=== PATIENT | male | born 1960 | race Caucasian/White ===

== ENCOUNTER 2016-08-28 15:20 | Emergency (ER) | payer OTHER ==
[~2016-08-28] VITALS: Ht 182.9 cm; Wt 73.6 kg
[~2016-08-28 15:20] MED LIST: ADVIN25/60 INH; ALBUAER19 INH; ALBUAER2 INH; IPRASOL4 INH; MELO15TA3 PO
[2016-08-28 15:26] VITALS: TEMP 36.5; Ht 182.9 cm; Wt 73.6 kg
[2016-08-28] MEDS ORDERED: ALBUTEROL 0.083% NEBU SOLN 3 ML VIAL INH STA (15:50)
[2016-08-28] MEDS ORDERED: METHYLPREDNISOLONE 125 MG VIAL IV STA (15:50)
[2016-08-28] MEDS ORDERED: SODIUM CHLORIDE 0.9% 500ML 500 ML IV STA (15:50)
[2016-08-28 15:53] VITALS: O2SAT 95
[2016-08-28] MEDS ORDERED: NAPR1TAB9 PO (15:56)
[2016-08-28] MEDS ORDERED: TRAM-10 PO (15:56)
[2016-08-28 16:09] LABS: BASO % 0.6 %; BASO ABS # 0.03 K/uL (0-0.2); COMPLETE YES; EOS % 2.7 %; HEMATOCRIT 41.9 % (42-52); IG% 0.2 %; LYMPH % 39.5 %; LYMPH ABS # 2.06 K/uL (1.2-3.4); MEAN CELL VOLUME 88.4 fL (80-100); MEAN CORPUSCULAR HEMOGLOBIN 32.5 pg (25-34); MEAN CORPUSCULAR HGB CONC 36.8 g/dl (32-36); MEAN PLATELET VOLUME 9.6 fL (7.4-10.4); MONO % 11.9 %; NEUT % 45.1 %; PLATELET COUNT 258 K/uL (130-400); RED BLOOD COUNT 4.74 M/uL (4.7-6.1); WHITE BLOOD COUNT 5.21 K/uL (4.8-10.8)
[2016-08-28 16:24] LABS: BLOOD UREA NITROGEN 18 mg/dl (7-18); CALCIUM 8.9 mg/dl (8.5-10.1); CARBON DIOXIDE 23 mmol/L (21-32); CHLORIDE 105 mmol/L (98-107); CREATININE 0.79 mg/dl (0.60-1.40); GLUCOSE 90 mg/dl (70-99); POTASSIUM 3.7 mmol/L (3.5-5.1); SODIUM 140 mmol/L (136-145)
[2016-08-28 16:29] LABS: CKMB/CK RATIO 1.5 (0-3.0)
--- NOTE | 2016-08-28 16:30 | DIAGNOSTIC IMAGING REPORT ---
CHEST ONE VIEW PORTABLE CLINICAL HISTORY: Chest pain. Cough. Shortness of breath. COMPARISON STUDY: Chest radiograph March 29, 2015. FINDINGS: Lung volumes are normal. No pneumothorax or pleural effusion is present. Cardiac size is normal. Mediastinal contours are normal. There is no evidence of pulmonary edema. Mild lower lung interstitial thickening is noted. IMPRESSION: 1. No definite acute cardiopulmonary findings. 2. Mild lower lung interstitial thickening which likely reflects atelectasis or normal vessels. Electronically signed by: Rodger Peralta M.D. 08/28/2016 4:28 PM Dictated Date/Time: 08/28/2016 4:27 PM
[2016-08-28] MEDS ORDERED: LEVOFLOXACIN 250 MG TAB PO ONE (18:30)
[2016-08-28] MEDS ORDERED: PRED50TA PO (18:31)
[2016-08-28] MEDS ORDERED: ALBU1.257 NEB (18:31)
[2016-08-28] MEDS ORDERED: LEVO-366 PO (18:31)
[2016-08-28 19:03] VITALS: BP 153/93; PULSE 88; O2SAT 95
--- NOTE | 2016-08-28 19:57 | EMERGENCY ROOM VISIT NOTE ---
History Report prepared by [place]: Elaina Wallace Under the Supervision of: Dr. Frankie Owusu D.O. First contact with patient: 15:35 Chief Complaint: CHEST PAIN Stated Complaint: CHEST DICOMFORT, COUGH, SOB Nursing Triage Summary: pt. arrived als, states he was at clinic today and was sent here, pt. has had cold and productive cough for past week, runny nose, chest pain substernal, 5/10 History of Present Illness The patient is a 55 year old male who presents to the Emergency Room with complaints of intermittent chest pain that has been ongoing for awhile, but states has worsened since yesterday. He currently rates his discomfort as a 4/ 10 in severity and describes it as a dull, achy pain. The patient notes a history of COPD and denies normally getting the discomfort with his COPD exacerbations. He additionally notes a cough and shortness of breath today. The patient states that he has had the pain five times today. He notes increased stress at home. The patient states that he intermittently experiences numbness in his extremities due sciatica. He states that one week ago he developed a cold and sore throat, but notes his symptoms subsided. The patient notes that his symptoms have come back and notes that his is sick at home. He denies any previous [place] and states that he is a smoker. Pt denies headache, change in vision, fevers, nausea, vomiting, diarrhea, pain with urination, and melena. Source of History: patient Onset: yesterday Position: chest Symptom Intensity: 4/10 Quality: ache, dull Timing: intermittent, worsening Associated Symptoms: + SOB, + cough, + sorethroat Review of Systems See HPI for pertinent positives & negatives. A total of 10 systems reviewed and were otherwise negative. Past Medical & Surgical Medical Problems: (1) Back pain, chronic (2) COPD (chronic obstructive pulmonary disease) (3) Diverticulitis (4) Hyperlipidemia (5) Kidney stones (6) Liver cyst (7) Olecranon bursitis of left elbow (8) Osteoarthritis (9) RA (rheumatoid arthritis) Surgical Problems: (1) S/P tonsillectomy Family History Cancer Diabetes mellitus Kidney disease Kidney stones Social History Smoking Status: Current Every Day Smoker Alcohol Use: occasionally Marital Status: Housing Status: lives with family Occupation Status: employed Current/Historical Medications Scheduled Albuterol Sulfate (Albuterol Sulfate), 1 VIAL NEB Q4 Fluticasone Prop/Salmeterol (Advair Diskus 250/50 60 Dose), 1 PUFF INH DAILY Ipratropium-Albuterol (Duoneb), 1 TREATMENT INH Q4H Levofloxacin (Levaquin), 500 MG PO DAILY Meloxicam (Mobic), 15 MG PO DAILY Prednisone (Prednisone), 50 MG PO DAILY Scheduled PRN Albuterol (Ventolin), 2 PUFFS INH QID PRN for SOB/Wheezing Naproxen (Aleve), 220 MG PO Q12 PRN for Pain Tramadol (Ultram), 100 MG PO DAILY PRN for Pain Allergies Coded Allergies: No Known Allergies (Unverified , 12/13/14) Physical Exam Vital Signs Date Time Temp Pulse Resp B/P Pulse Ox O2 Delivery O2 Flow Rate FiO2 08/28/16 19:03 88 15 153/93 95 08/28/16 17:54 71 21 149/80 94 Room Air 08/28/16 16:44 68 19 140/91 96 Room Air 08/28/16 15:53 95 Room Air 08/28/16 15:34 79 08/28/16 15:26 36.5 76 15 140/81 95 Room Air 08/28/16 15:26 Room Air Physical Exam GENERAL: Sitting up in bed, chronically ill appearing, disheveled, nontoxic. EYE EXAM: normal conjunctiva. OROPHARYNX: no exudate, no erythema, lips, buccal mucosa, and tongue normal and mucous membranes are moist NECK: supple, no nuchal rigidity, no adenopathy, non-tender LUNGS: Coarse sounds in the bilateral bases. Normal chest wall mechanics. Acute nonproductive cough. HEART: no murmurs, S1 normal and S2 normal ABDOMEN: abdomen soft, non-tender, normo-active bowel sounds, no masses, no rebound or guarding. BACK: Back is symmetrical on inspection and there is no deformity, no midline tenderness, no CVA tenderness. SKIN: no rashes and no bruising UPPER EXTREMITIES: upper extremities are grossly normal. Radial pulses are equal bilaterally. LOWER EXTREMITIES: No pitting edema. NEURO EXAM: Normal sensorium, cranial nerves II-XII grossly intact, normal speech, no gross weakness of arms, no gross weakness of legs. Medical Decision & Procedures ER Provider Diagnostic Interpretation: Xray results per the radiologist and my interpretation. Other results have been interpreted by the radiologist and reviewed by me. CHEST ONE VIEW PORTABLE CLINICAL HISTORY: Chest pain. Cough. Shortness of breath. COMPARISON STUDY: Chest radiograph March 29, 2015. FINDINGS: Lung volumes are normal. No pneumothorax or pleural effusion is present. Cardiac size is normal. Mediastinal contours are normal. There is no evidence of pulmonary edema. Mild lower lung interstitial thickening is noted. IMPRESSION: 1. No definite acute cardiopulmonary findings. 2. Mild lower lung interstitial thickening which likely reflects atelectasis or normal vessels. Electronically signed by: Rodger Peralta M.D. 08/28/2016 4:28 PM Dictated Date/Time: 08/28/2016 4:27 PM Laboratory Results 08/28/16 15:50 Red Blood Count 4.74, Mean Corpuscular Volume 88.4, Mean Corpuscular Hemoglobin 32.5, Mean Corpuscular Hemoglobin Concent 36.8, Mean Platelet Volume 9.6, Neutrophils (%) (Auto) 45.1, Lymphocytes (%) (Auto) 39.5, Monocytes (%) (Auto) 11.9, Eosinophils (%) (Auto) 2.7, Basophils (%) (Auto) 0.6, Neutrophils # (Auto ) 2.35, Lymphocytes # (Auto) 2.06, Monocytes # (Auto) 0.62, Eosinophils # (Auto ) 0.14, Basophils # (Auto) 0.03 08/28/16 15:50 Test 08/28/16 15:50 08/28/16 16:00 08/28/16 17:35 White Blood Count 5.21 K/uL (4.8-10.8) Red Blood Count 4.74 M/uL (4.7-6.1) Hemoglobin 15.4 g/dL (14.0-18.0) Hematocrit 41.9 % (42-52) Mean Corpuscular Volume 88.4 fL (80-100) Mean Corpuscular Hemoglobin 32.5 pg (25-34) Mean Corpuscular Hemoglobin Concent 36.8 g/dl (32-36) Platelet Count 258 K/uL (130-400) Mean Platelet Volume 9.6 fL (7.4-10.4) Neutrophils (%) (Auto) 45.1 % Lymphocytes (%) (Auto) 39.5 % Monocytes (%) (Auto) 11.9 % Eosinophils (%) (Auto) 2.7 % Basophils (%) (Auto) 0.6 % Neutrophils # (Auto) 2.35 K/uL (1.4-6.5) Lymphocytes # (Auto) 2.06 K/uL (1.2-3.4) Monocytes # (Auto) 0.62 K/uL (0.11-0.59) Eosinophils # (Auto) 0.14 K/uL (0-0.5) Basophils # (Auto) 0.03 K/uL (0-0.2) RDW Standard Deviation 40.8 fL (36.4-46.3) RDW Coefficient of Variation 12.7 % (11.5-14.5) Immature Granulocyte % (Auto) 0.2 % Immature Granulocyte # (Auto) 0.01 K/uL (0.00-0.02) D-Dimer 290 ug/L FEU (0-500) Anion Gap 12.0 mmol/L (3-11) Est Creatinine Clear Calc Drug Dose 107.4 ml/min Estimated GFR () 115.5 Estimated GFR (Non- 99.7 BUN/Creatinine Ratio 23.0 (10-20) Calcium Level 8.9 mg/dl (8.5-10.1) Total Creatine Kinase 96 U/L (39-308) Creatine Kinase MB 1.4 ng/ml (0.5-3.6) Creatine Kinase MB Ratio 1.5 (0-3.0) Influenza Type A Antigen Neg for Influ A (NEG) Influenza Type B Antigen Neg for Influ B (NEG) Troponin I < 0.015 ng/ml (0-0.045) Laboratory results per my review. Medications Administered Medications (Trade) Dose Ordered Sig/Tj Route Start Time Stop Time Status Last Admin Dose Admin Sodium Chloride (Nss 500ml) 500 ml @ 999 mls/hr Q31M STAT IV 08/28/16 15:50 08/28/16 16:20 DC 08/28/16 15:59 999 MLS/HR Albuterol Sulfate (Ventolin 0.083% 2.5MG/3ML Neb) 2.5 mg NOW STAT INH 08/28/16 15:50 08/28/16 15:52 DC 08/28/16 15:58 2.5 MG Methylprednisolone Sodium Succinate (Solu-Medrol IV) 125 mg NOW STAT IV 08/28/16 15:50 08/28/16 15:52 DC 08/28/16 15:50 125 MG Levofloxacin (Levaquin Tab) 500 mg NOW ONCE PO 08/28/16 18:30 08/28/16 18:31 DC 08/28/16 19:02 500 MG ECG Indication: chest pain Rate (beats per minute): 69 Rhythm: sinus rhythm Findings: no ectopy, other (normal axis) ED Course ED COURSE: Vital signs were reviewed and showed normal vitals. The patients medical record was reviewed The above diagnostic studies were performed and reviewed. ED treatments and interventions as stated above. 1542: The patient was evaluated in room A9. A complete history and physical examination was performed. 1550: Ordered Solu-Medrol IV 125 mg IV, Albuterol Sulfate 2.5 mg INH, Sodium Chloride 500 ml @ 999 mls/hr IV. 1740: I reevaluated the patient and he had complete resolution of his symptoms. 1829: Ordered Levofloxacin 500 mg PO. 1835: Upon reevaluation, the patient is resting comfortably.I discussed my findings with the patient and he understands and agrees with the treatment plan. Based on the patients age, coexisting illnesses, exam and lab findings the decision to treat as an outpatient was made. The patient remained stable while under my care. The patient appeared well at the time of discharge. Medical Decision Differential diagnoses includes but is not limited to acute coronary syndrome, myocardial infarction, pericarditis, pulmonary embolus, aortic dissection, pneumonia, pneumothorax, musculoskeletal, shingles, esophageal. Patient is a 55-year-old male who presents the ER for sore throat with a cough, runny nose and shortness of breath. He describes midsternal chest tightness which has been present for the past 3 days. He does have a past medical history of hypertension and hyperlipidemia. He also has a history of COPD. Lungs were coarse bilaterally. He was given albuterol neb treatment with complete resolution of his symptoms along with steroids and antibiotics. Chest x-ray bleed supports a scant right lower lobe pneumonia. EKG and troponins were negative 2. Patient was updated bedside. I do feel strongly that this is likely respiratory in origin especially with his complaints. I considered PE but did not pursue this any further as he has a clear upper respiratory infection. He is discharged with Levaquin, steroids and albuterol nebs. Discussed with Pt concerning signs and symptoms to watch out for. Pt was instructed to follow up with their PCP and discussed with the patient their option to return to the ED at anytime for persistent or worsening symptoms. The appropriate anticipatory guidance and out-patient management, including indications for return to the emergency department, were explained at length to the patient and understood. Impression Primary Impression: COPD with acute exacerbation Additional Impression: Bronchitis Scribe Attestation The scribe's documentation has been prepared under my direction and personally reviewed by me in its entirety. I confirm that the note above accurately reflects all work, treatment, procedures, and medical decision making performed by me. Departure Information Dispostion Home / Self-Care Prescriptions Albuterol Sulfate (ALBUTEROL SULFATE) 1.25 Mg/3 Ml Neb 1 VIAL NEB Q4 for 5 Days, #75 ML Prov: Frankie Owusu DO 08/28/16 Levofloxacin (Levaquin) 500 Mg Tab 500 MG PO DAILY for 9 Days, TAB Prov: Frankie Owusu DO 08/28/16 Prednisone (PREDNISONE) 50 Mg Tab 50 MG PO DAILY for 4 Days, TAB Prov: Frankie Owusu, 08/28/16 Referrals Adrienne Jc DO (PCP) Forms HOME CARE DOCUMENTATION FORM, IMPORTANT VISIT INFORMATION Patient Instructions A Signature Page, COPD - [facility], [facility] Additional Instructions Please follow up with your primary care doctor with in the next 24 hours. Any worsening of your symptoms, please return to the ED immediately. This includes worsening chest pain, shortness of breath, passing out, or any other concerning signs or symptoms from your standpoint. He did appear to have a bronchitis. Please take your steroids and antibiotics as prescribed.
== END 2016-08-28 19:13 | disposition home or self-care (01) ==
LOC: EDBD 15:20 → C.EDA 15:21
DX: J44.1 Chronic obstructive pulmonary disease with (acute) exacerbation (principal); J40 Bronchitis, not specified as acute or chronic; R07.9 Chest pain, unspecified; R05 Cough; R06.02 Shortness of breath; J02.9 Acute pharyngitis, unspecified; I10 Essential (primary) hypertension; E78.5 Hyperlipidemia, unspecified; R20.0 Anesthesia of skin; M06.9 Rheumatoid arthritis, unspecified; Z79.899 Other long term (current) drug therapy; F17.200 Nicotine dependence, unspecified, uncomplicated

== ENCOUNTER → 2017-02-19 | Outpatient (CLI) | payer OTHER ==
[~2017-02-19] MED LIST changes: -ALBUAER19 INH; +NAPR1TAB9 PO; +TRAM-10 PO
[2017-02-19 13:36] LABS: BASO % 0.3 %; BASO ABS # 0.02 K/uL (0-0.2); COMPLETE YES; EOS % 3.9 %; HEMATOCRIT 45.5 % (42-52); IG% 0.3 %; LYMPH % 26.6 %; LYMPH ABS # 1.71 K/uL (1.2-3.4); MEAN CELL VOLUME 91.5 fL (80-100); MEAN CORPUSCULAR HEMOGLOBIN 32.4 pg (25-34); MEAN CORPUSCULAR HGB CONC 35.4 g/dl (32-36); MEAN PLATELET VOLUME 10.2 fL (7.4-10.4); MONO % 9.6 %; NEUT % 59.3 %; PLATELET COUNT 279 K/uL (130-400); RED BLOOD COUNT 4.97 M/uL (4.7-6.1); WHITE BLOOD COUNT 6.43 K/uL (4.8-10.8)
[2017-02-19 14:01] LABS: ALT/SGPT 23 U/L (12-78); AST/SGOT 15 U/L (15-37); BLOOD UREA NITROGEN 14 mg/dl (7-18); BUN/CREATININE RATIO 18.7 (10-20); CALCIUM 8.7 mg/dl (8.5-10.1); CARBON DIOXIDE 26 mmol/L (21-32); CHLORIDE 107 mmol/L (98-107); CHOLESTEROL 181 mg/dl (0-200); CREATININE 0.75 mg/dl (0.60-1.40); GLUCOSE 85 mg/dl (70-99); POTASSIUM 4.1 mmol/L (3.5-5.1); SODIUM 137 mmol/L (136-145); TRIGLYCERIDES 90 mg/dl (0-150); VERY LOW DENSITY LIPOPROT CALC 18 mg/dl
[2017-02-19 14:04] LABS: ALB/GLOB RATIO 0.9 (0.9-2); ALKALINE PHOSPHATASE 96 U/L (45-117); CHOLESTEROL/HDL RATIO 4.5; HDL CHOLESTEROL 40 mg/dl; LDL CHOLESTEROL CALCULATED 123 mg/dl
== END | disposition home or self-care (01) ==
LOC: C.LABPBG 09:18
PROVIDERS: ATTEND Family Medicine
DX: Z00.00 Encounter for general adult medical examination without abnormal findings (principal); N40.1 Benign prostatic hyperplasia with lower urinary tract symptoms; Z12.5 Encounter for screening for malignant neoplasm of prostate; M06.9 Rheumatoid arthritis, unspecified

== ENCOUNTER 2017-08-26 16:51 | Emergency (ER) | payer OTHER ==
[~2017-08-26] VITALS: Ht 182.9 cm; Wt 72.8 kg
[2017-08-26 17:25] VITALS: TEMP 36.7; Ht 182.9 cm; Wt 72.8 kg
[2017-08-26] MEDS ORDERED: METHYLPREDNISOLONE 125 MG VIAL IV STA (19:26)
[2017-08-26] MEDS ORDERED: ONDANSETRON INJ 2 MG/ML 2 ML VIAL IV STA (19:26)
[2017-08-26] MEDS ORDERED: LIDODERM (LIDOCAINE) PATCH 5% TD STA (19:26)
[2017-08-26] MEDS ORDERED: HYDROmorphone INJ 1 MG/ML SYR IV STA (19:26)
[2017-08-26] MEDS ORDERED: KETOROLAC TROMETHAMINE 30 MG/ML VIAL IV STA (19:26)
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
[2017-08-26] MEDS ORDERED: ALBUT/IPRATROP 3MG/0.5MG NEB 3 ML VIAL INH STA (19:31)
[2017-08-26 19:51] VITALS: O2SAT 96
[2017-08-26 20:09] LABS: BASO % 0.3 %; BASO ABS # 0.02 K/uL (0-0.2); EOS % 2.2 %; EOS ABS # 0.13 K/uL (0-0.5); HEMATOCRIT 38.7 % (42-52); HEMOGLOBIN 13.9 g/dL (14.0-18.0); IG# 0.01 K/uL (0.00-0.02); LYMPH % 37.1 %; LYMPH ABS # 2.16 K/uL (1.2-3.4); MEAN CELL VOLUME 88.2 fL (80-100); MEAN CORPUSCULAR HEMOGLOBIN 31.7 pg (25-34); MEAN CORPUSCULAR HGB CONC 35.9 g/dl (32-36); MEAN PLATELET VOLUME 9.5 fL (7.4-10.4); MONO % 7.7 %; MONO ABS # 0.45 K/uL (0.11-0.59); NEUT % 52.5 %; NEUT ABS # 3.05 K/uL (1.4-6.5); PLATELET COUNT 220 K/uL (130-400); RED CELL DISTRIBUTION WIDTH CV 13.3 % (11.5-14.5); RED CELL DISTRIBUTION WIDTH SD 42.9 fL (36.4-46.3); WHITE BLOOD COUNT 5.82 K/uL (4.8-10.8)
[2017-08-26 20:10] LABS: ISTAT CREATININE 0.6 mg/dl (0.6-1.3); ISTAT IONIZED CALCIUM 1.14 mmol/l (1.12-1.32); ISTAT POTASSIUM 3.5 mEq/L (3.3-5.0)
[2017-08-26] MEDS ORDERED: HYDR12.55 PO (20:23)
[2017-08-26] MEDS ORDERED: GABA1CAP4 PO (20:23)
[2017-08-26 20:29] LABS: ALBUMIN 3.4 gm/dl (3.4-5.0); ALT/SGPT 22 U/L (12-78); AST/SGOT 12 U/L (15-37); BLOOD UREA NITROGEN 11 mg/dl (7-18); CALCIUM 8.8 mg/dl (8.5-10.1); CARBON DIOXIDE 26 mmol/L (21-32); CREATININE 0.69 mg/dl (0.60-1.40); GLUCOSE 82 mg/dl (70-99); POTASSIUM 3.5 mmol/L (3.5-5.1); SODIUM 136 mmol/L (136-145)
[2017-08-26 20:32] LABS: ALKALINE PHOSPHATASE 96 U/L (45-117); TOTAL PROTEIN 7.7 gm/dl (6.4-8.2)
[2017-08-26] MEDS ORDERED: CELE1CAP30 PO (20:32)
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
[2017-08-26] MEDS ORDERED: OPTIRAY 320 IV PRN (21:15)
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
[2017-08-26] MEDS ORDERED: PRED20TA2 PO (22:31)
[2017-08-26] MEDS ORDERED: NF656 TD (22:31)
[2017-08-26] MEDS ORDERED: OXYC-57 PO (22:31)
[2017-08-26] MEDS ORDERED: PERCOCET HOME PACK PO STA (22:35)
[2017-08-26 22:55] VITALS: BP 176/104; PULSE 79; O2SAT 99
== END 2017-08-26 23:05 | disposition home or self-care (01) ==
LOC: C.EDB 16:52 → C.EDA 23:05
DX: I77.6 Arteritis, unspecified (principal); R91.1 Solitary pulmonary nodule; M54.9 Dorsalgia, unspecified; E78.5 Hyperlipidemia, unspecified; J44.9 Chronic obstructive pulmonary disease, unspecified; K76.89 Other specified diseases of liver; M06.9 Rheumatoid arthritis, unspecified; K57.92 Diverticulitis of intestine, part unspecified, without perforation or abscess without bleeding; M19.90 Unspecified osteoarthritis, unspecified site; F17.200 Nicotine dependence, unspecified, uncomplicated; Z87.440 Personal history of urinary (tract) infections; Z98.890 Other specified postprocedural states; Z79.899 Other long term (current) drug therapy; Z80.9 Family history of malignant neoplasm, unspecified; Z83.3 Family history of diabetes mellitus; Z84.1 Family history of disorders of kidney and ureter

== ENCOUNTER → 2017-10-14 | Outpatient (CLI) | payer OTHER ==
[~2017-10-14] MED LIST changes: +CELE1CAP30 PO; +GABA-1219 PO; -MELO15TA3 PO; -NAPR1TAB9 PO; +NF656 TD; +OXYC-57 PO; +PRED20TA2 PO; -TRAM-10 PO
--- NOTE | 2017-10-14 16:06 | DIAGNOSTIC IMAGING REPORT ---
LEFT HAND 3 VIEWS CLINICAL HISTORY: Left hand pain. FINDINGS: 3 views of the left hand are obtained. No prior studies are available for comparison at the time of dictation. The skeletal structures are well mineralized. No fracture is seen. There is erosive arthritic change seen at the first and second metacarpophalangeal joints. Erosion is also suggested in the fifth metacarpal head. Minimal osteoarthritic change is present involving the interphalangeal joints. There is moderate osteoarthritic change present at the radiocarpal articulation. Widening is suggested within the scaphoid and the lunate. Mild soft tissue swelling is suggested in the fingers. IMPRESSION: 1. Erosive arthritic change as above, greatest at the first and second metacarpophalangeal joints. 2. There is widening suggested between the scaphoid and the lunate, possibly representing chronic ligamentous injury. Consider correlation with dedicated wrist views for further assessment. Electronically signed by: Iggy Mejias M.D. 10/14/2017 4:04 PM Dictated Date/Time: 10/14/2017 4:02 PM
--- NOTE | 2017-10-14 16:10 | DIAGNOSTIC IMAGING REPORT ---
R HAND MIN 3 VIEWS ROUTINE CLINICAL HISTORY: Rheumatoid arthritis. Bilateral hand pain. COMPARISON: None FINDINGS: Alignment of the right hand is anatomic. No fracture or suspicious lesion is noted. There is widening of the scapholunate interval. There is moderate radiocarpal joint space narrowing. There are multiple juxta-articular lucencies which suggest erosions, most evident within the lateral basis of the second and third proximal phalanges. There are also suspected erosions of the distal ulna and within the carpal bones. IMPRESSION: 1. Multiple juxta-articular lucencies suggestive of erosions, as described above. 2. Moderate radiocarpal joint space narrowing. 3. Widening of the scapholunate interval. 4. No acute fracture. Electronically signed by: Rodger Peralta M.D. 10/14/2017 4:09 PM Dictated Date/Time: 10/14/2017 4:06 PM
--- NOTE | 2017-10-14 16:22 | DIAGNOSTIC IMAGING REPORT ---
R FOOT MIN 3 VIEWS ROUTINE, L FOOT MIN 3 VIEWS ROUTINE CLINICAL HISTORY: M06.9 Rheumatoid [id number] Symmetrical polyarthritisbothRA COMPARISON STUDY: None. FINDINGS: Mild cartilage space narrowing within the bilateral first MTP joints. Multiple scattered periarticular erosions identified within the majority of the MTP joints, interphalangeal joints of the first toes, and a few of the PIP joints of the toes. Soft tissue swelling within the first MTP joint. The bones are osteopenic. No acute fractures. Plantar heel spurs. Dorsal dislocation at the right second MTP joint. Lateral subluxation of the interphalangeal joint of the right fifth toe. IMPRESSION: 1. Dorsal dislocation at the right second MTP joint. . 2. Multiple scattered periarticular erosions seen within the feet consistent with the patient's history of an inflammatory arthropathy. Electronically signed by: Chris Vigil M.D. 10/14/2017 4:21 PM Dictated Date/Time: 10/14/2017 4:17 PM
--- NOTE | 2017-10-14 16:22 | DIAGNOSTIC IMAGING REPORT ---
R FOOT MIN 3 VIEWS ROUTINE, L FOOT MIN 3 VIEWS ROUTINE CLINICAL HISTORY: M06.9 Rheumatoid [id number] Symmetrical polyarthritisbothRA COMPARISON STUDY: None. FINDINGS: Mild cartilage space narrowing within the bilateral first MTP joints. Multiple scattered periarticular erosions identified within the majority of the MTP joints, interphalangeal joints of the first toes, and a few of the PIP joints of the toes. Soft tissue swelling within the first MTP joint. The bones are osteopenic. No acute fractures. Plantar heel spurs. Dorsal dislocation at the right second MTP joint. Lateral subluxation of the interphalangeal joint of the right fifth toe. IMPRESSION: 1. Dorsal dislocation at the right second MTP joint. . 2. Multiple scattered periarticular erosions seen within the feet consistent with the patient's history of an inflammatory arthropathy. Electronically signed by: Chris Vigil M.D. 10/14/2017 4:21 PM Dictated Date/Time: 10/14/2017 4:17 PM
[2017-10-14 17:05] LABS: TRANSFERRIN 203 mg/dl (200-360)
[2017-10-19 02:33] LABS: ANA SCREEN TC 249X NEGATIVE (NEGATIVE); ANTI-SS-A >8.0 POS AI (<1.0 NEG); ANTI-SS-B <1.0 NEG AI (<1.0 NEG); COMPLEMENT C3 TC 44859W 115 MG/DL (90-180); COMPLEMENT C4 TC 44982E 19 MG/DL (16-47)
== END | disposition home or self-care (01) ==
LOC: C.RAD 15:03
PROVIDERS: ATTEND Internal Medicine Rheumatology
DX: M06.9 Rheumatoid arthritis, unspecified (principal); M13.80 Other specified arthritis, unspecified site; S93.124A Dislocation of metatarsophalangeal joint of right lesser toe(s), initial encounter; M15.4 Erosive (osteo)arthritis; M19.041 Primary osteoarthritis, right hand

== ENCOUNTER 2018-03-18 15:04 | Emergency (ER) | payer OTHER ==
[~2018-03-18] VITALS: Ht 182.9 cm; Wt 68.1 kg
[~2018-03-18 15:04] MED LIST changes: +IPRA-64 INH; -IPRASOL4 INH; -PRED20TA2 PO
[2018-03-18 15:22] VITALS: TEMP 36.7; Ht 182.9 cm; Wt 68.1 kg
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
[2018-03-18 16:29] VITALS: BP 125/84; PULSE 76; O2SAT 98
== END 2018-03-18 16:34 | disposition home or self-care (01) ==
LOC: C.EDB 15:05 → C.EDC 16:34
DX: R20.2 Paresthesia of skin (principal); J44.9 Chronic obstructive pulmonary disease, unspecified; M06.9 Rheumatoid arthritis, unspecified; E78.5 Hyperlipidemia, unspecified; F17.200 Nicotine dependence, unspecified, uncomplicated; Z79.899 Other long term (current) drug therapy; Z80.9 Family history of malignant neoplasm, unspecified; Z83.3 Family history of diabetes mellitus; Z84.1 Family history of disorders of kidney and ureter